=== PATIENT | male | born 1980 | race Two or more races ===

== ENCOUNTER 2019-02-25 09:48 | Outpatient (CLI) | payer OTHER ==
[~2019-02-25 09:48] MED LIST: ATIVAN1 MG; ATIVAN2 MG; ZIPREXA
== END 2019-02-25 09:52 | disposition home or self-care (01) ==
LOC: SONOGRAMA 09:48 → MAMO-SONO 10:45
DX: G56.03 Carpal tunnel syndrome, bilateral upper limbs (principal)

== ENCOUNTER 2019-04-06 10:54 | Outpatient (CLI) | payer OTHER ==
[~2019-04-06 10:54] MED LIST changes: +NEURONTIN800 MG PO
== END 2019-04-06 11:18 | disposition home or self-care (01) ==
LOC: RAD 10:54
DX: G56.03 Carpal tunnel syndrome, bilateral upper limbs (principal)